=== PATIENT | male | born 1965 | race Caucasian/White ===

== ENCOUNTER 2017-08-08 07:41 | Emergency (ER) | payer BC ==
[2017-08-08] MEDS ORDERED: NA CHLORIDE 0.9% 1,000 ML ONE (08:00)
[2017-08-08 09:10] LABS: Absolute Monocytes 0.5 K/uL (0.1-1.3); Absolute Neutrophil 4.2 K/uL (1.8-8.0); Basophils % 0.9 % (0-1.3); Eosinophils % 0.8 % (0-4.4); Hematocrit 45.9 % (39.6-49.0); Lymphocytes % 16.5 % (15.3-44.8); MCH 25.6 pg (27.0-35.0); MCV 79.7 fL (80-100); MPV 8.5 fL (7.6-11.3); Monocytes % 9.1 % (3.3-12.3); RBC Red Blood Cell Count 5.76 M/uL (4.33-5.43)
[2017-08-08 09:11] LABS: Protime INR 0.97
[2017-08-08 09:22] LABS: Albumin 4.1 g/dL (3.2-5.5); Bilirubin Direct 0.1 mg/dL (0-0.2); Bilirubin Total 0.5 mg/dL (0.3-1.2); Magnesium 1.9 mg/dL (1.8-2.5); Protein, Total 7.3 g/dL (6.0-8.3)
--- NOTE | 2017-08-08 09:36 | RAD REPORT ---
EXAM DESCRIPTION: RAD - Chest Single View - 08/08/2017 8:35 am CLINICAL HISTORY: Chest pain, diabetes COMPARISON: None. FINDINGS: Portable technique limits examination quality. The lungs are grossly clear. The heart is normal in size. No displaced fractures. IMPRESSION: No acute intrathoracic process suspected.
--- NOTE | 2017-08-08 09:49 | EKG ---
Test Date: 2017-08-08 Test Time: 08:15:35 Health Records Technology Teacher: PRASHANT MEASUREMENT RESULTS: Intervals: Rate: 87 AR: 128 QRSD: 96 QT: 360 QTc: 433 Falls: P: 71 AR: 128 QRS: 66 T: 7 INTERPRETIVE STATEMENTS: Normal sinus rhythm T wave abnormality, consider inferior ischemia Abnormal ECG No previous ECG available for comparison Electronically Signed On 08-08-17 09:48:52 CDT by Arnulfo Terrazas
--- NOTE | 2017-08-08 09:50 | ER ---
Nurse's Notes [facility] Name: Caroline Pina Age: 52 yrs Sex: Male : 1965 Arrival Date: 08/08/2017 Time: 07:46 Bed 19 Private MD: Diagnosis: Palpitations;Weakness;Dehydration Presentation: 08/08 07:46 Presenting complaint: EMS states: called out for feeling "woozy and light headed" em reports nausea, denies vomiting, hx of diabetes, BGL on scene 134. EMS VS 165/80, 100HR, SPO2 100%, denies pain. Transition of care: patient was not received from another setting of care. Onset of symptoms was August 08, 2017. Initial Sepsis Screen: Does the patient meet any 2 criteria? No. Patient's initial sepsis screen is negative. Does the patient have a suspected source of infection? No. Patient's initial sepsis screen is negative. Care prior to arrival: Medication(s) given: Normal saline infusion, 200 mL. 07:46 Method Of Arrival: EMS: [facility] em 07:48 Acuity: ULCIO 3 iw Triage Assessment: 07:51 General: Appears in no apparent distress. comfortable, well groomed, Behavior is calm, em cooperative. Pain: Denies pain. Historical: - Allergies: 07:53 No Known Allergies; em - PMHx: 07:53 Irregular heart rate; High Cholesterol; em - PSHx: 07:53 vesectomy; em - Immunization history:: Adult Immunizations up to date. - Social history:: Smoking status: Patient/guardian denies using tobacco. Screenin:50 Abuse screen: Denies threats or abuse. Nutritional screening: No deficits noted. em Tuberculosis screening: No symptoms or risk factors identified. Fall Risk None identified. Assessment: 07:50 General: Appears in no apparent distress. comfortable, Behavior is calm, cooperative, em appropriate for age. Pain: Denies pain. Neuro: Level of Consciousness is awake, alert, obeys commands, Oriented to person, place, time, situation, Director Of [employer] are equal bilaterally Moves all extremities. Speech is normal, Facial symmetry appears normal, Intact Reports dizziness, light headed. Cardiovascular: Heart tones S1 S2 present Capillary refill < 3 seconds Patient's skin is warm and dry. Rhythm is sinus rhythm. Respiratory: Airway is patent Respiratory effort is even, unlabored, Respiratory pattern is regular, symmetrical. GI: Abdomen is flat. : No signs and/or symptoms were reported regarding the genitourinary system. EENT: No signs and/or symptoms were reported regarding the EENT system. Derm: Skin is intact, Skin is pink, warm \\T\\ dry. Musculoskeletal: Range of motion: intact in all extremities. 08:00 Reassessment: Patient appears in no apparent distress at this time. I agree with above iw assessment by Emmanuel Perales LVN. 08:48 Reassessment: Patient appears in no apparent distress at this time. Patient and/or em family updated on plan of care and expected duration. Pain level reassessed. Patient is alert, oriented x 3, equal unlabored respirations, skin warm/dry/pink. Patient states feeling better. Patient states symptoms have improved. 09:50 Reassessment: Patient appears in no apparent distress at this time. Patient and/or em family updated on plan of care and expected duration. Pain level reassessed. Patient is alert, oriented x 3, equal unlabored respirations, skin warm/dry/pink. Patient denies pain at this time. Patient states feeling better. Patient states symptoms have improved. Vital Signs: 07:51 BP 157 / 79; Pulse 101; Resp 18; Temp 97.8; Pulse Ox 100% on R/A; Weight 83.91 kg; em Height 5 ft. 10 in. (177.80 cm); Pain 0/10; 07:57 BP 135 / 78 Supine; Pulse 89; Resp 16; Pulse Ox 98% on R/A; mh5 07:59 BP 140 / 88 Sitting; Pulse 93; Resp 17; Pulse Ox 100% on R/A; mh5 08:00 BP 134 / 87 Standing; Pulse 94; Resp 16; Pulse Ox 99% on R/A; mh5 09:00 BP 127 / 81; Pulse 78; Resp 16; Pulse Ox 100% on R/A; Pain 0/10; em 10:03 BP 122 / 75; Pulse 81; Resp 18; Pulse Ox 99% on R/A; Pain 0/10; em 07:51 Body Mass Index 26.54 (83.91 kg, 177.80 cm) em ED Course: 07:46 Patient arrived in ED. em 07:47 Antwan Benjamin PA is PHCP. 8 07:47 Chetan Bowman MD is Attending Physician. jr8 07:48 Triage completed. iw 07:50 Patient has correct armband on for positive identification. Bed in low position. Call em light in reach. Side rails up X2. 07:50 No provider procedures requiring assistance completed. Maintain EMS IV. Dressing em intact. Good blood return noted. Site clean \\T\\ dry. Gauge \\T\\ site: 20 G RAC. 07:53 Arm band placed on. em 07:54 Emmanuel Perales LVN is Primary Nurse. em 08:22 EKG done, by commercial pest control technician. reviewed by Antwan MACK. tc 08:29 X-ray completed. Portable x-ray completed in exam room. Patient tolerated procedure ag1 well. 08:31 XRAY Chest (1 view) In Process Unspecified. EDMS 10:21 IV discontinued, intact, bleeding controlled, No redness/swelling at site. Pressure em dressing applied. Administered Medications: 08:30 Drug: NS 0.9% 1000 ml Route: IV; Rate: 1000 ml; Site: left antecubital; em 10:06 Follow up: IV Status: Completed infusion; IV Intake: 1000ml em Point of Care Testing: Blood Glucose: 08:06 Blood Glucose: 137 mg/dL; mh5 Ranges: Intake: 10:06 IV: 1000ml; Total: 1000ml. em Outcome: 09:49 Discharge ordered by . jr8 10:22 Discharged to home ambulatory, with family. em 10:22 Condition: good 10:22 Discharge instructions given to patient, family, Instructed on discharge instructions, follow up and referral plans. medication usage, Demonstrated understanding of instructions, follow-up care. 10:22 Patient left the ED. em Signatures: Dispatcher [employer] EDMS Emmanule Perales LVN LVN em Shu Beltran RN RN Antwan Lazo PA PA jr8 Alsysa Garcia, corporate real estate specialist EKG Ttc Jayshree Hart ag1 [place] 5 Corrections: (The following items were deleted from the chart) 10:20 07:51 BP 157 / 79; Pulse 101bpm; Resp 18bpm; Pulse Ox 100% RA; 83.91 kg; Height 5 ft. em 10 in.; BMI: 26.5; Pain 0/10; em
--- NOTE | 2017-08-08 09:50 | EDPHYS ---
Physician Documentation [facility] Name: Caroline Pina Age: 52 yrs Sex: Male : 1965 Arrival Date: 08/08/2017 Time: 07:46 Bed 19 Private MD: ED Physician Chetan Bowman HPI: 08/08 08:50 This 52 yrs old Male presents to ER via EMS with complaints of weakness. jr8 08:50 Patient stated that while at work felt weak and "not right". Stated that he feels jr8 drained. Noticed that he has palpations on/off. History of that and was been seen by cardiology and told that it is benign but noticed he is getting it more frequently. Had had increased shortness of breath with exertion today as well . Severity of symptoms: At their worst the symptoms were moderate in the emergency department the symptoms are unchanged. The patient has not experienced similar symptoms in the past. The patient has not recently seen a physician. Historical: - Allergies: 07:53 No Known Allergies; em - PMHx: 07:53 Irregular heart rate; High Cholesterol; em - PSHx: 07:53 vesectomy; em - Immunization history:: Adult Immunizations up to date. - Social history:: Smoking status: Patient/guardian denies using tobacco. ROS: 08:50 Eyes: Negative for injury, pain, redness, and discharge, ENT: Negative for injury, jr8 pain, and discharge, Neck: Negative for injury, pain, and swelling, Abdomen/GI: Negative for abdominal pain, nausea, vomiting, diarrhea, and constipation, Back: Negative for injury and pain, MS/Extremity: Negative for injury and deformity, Skin: Negative for injury, rash, and discoloration, Neuro: Negative for headache, weakness, numbness, tingling, and seizure. 08:50 Cardiovascular: Positive for palpitations, Negative for chest pain, edema, orthopnea, paroxysmal nocturnal dyspnea. 08:50 Respiratory: Positive for dyspnea on exertion, Negative for cough, hemoptysis, orthopnea, pleurisy, sputum production, wheezing. Exam: 08:50 Eyes: Pupils equal round and reactive to light, extra-ocular motions intact. Lids and jr8 lashes normal. Conjunctiva and sclera are non-icteric and not injected. Cornea within normal limits. Periorbital areas with no swelling, redness, or edema. ENT: Nares patent. No nasal discharge, no septal abnormalities noted. Tympanic membranes are normal and external auditory canals are clear. Oropharynx with no redness, swelling, or masses, exudates, or evidence of obstruction, uvula midline. Mucous membranes moist. Neck: Trachea midline, no thyromegaly or masses palpated, and no cervical lymphadenopathy. Supple, full range of motion without nuchal rigidity, or vertebral point tenderness. No Meningismus. Cardiovascular: Regular rate and rhythm with a normal S1 and S2. No gallops, murmurs, or rubs. Normal PMI, no JVD. No pulse deficits. Respiratory: Lungs have equal breath sounds bilaterally, clear to auscultation and percussion. No rales, rhonchi or wheezes noted. No increased work of breathing, no retractions or nasal flaring. Abdomen/GI: Soft, non-tender, with normal bowel sounds. No distension or tympany. No guarding or rebound. No evidence of tenderness throughout. Back: No spinal tenderness. No costovertebral tenderness. Full range of motion. Skin: Warm, dry with normal turgor. Normal color with no rashes, no lesions, and no evidence of cellulitis. MS/ Extremity: Pulses equal, no cyanosis. Neurovascular intact. Full, normal range of motion. Neuro: Awake and alert, GCS 15, oriented to person, place, time, and situation. Cranial nerves II-XII grossly intact. Motor strength 5/5 in all extremities. Sensory grossly intact. Cerebellar exam normal. Normal gait. Vital Signs: 07:51 BP 157 / 79; Pulse 101; Resp 18; Temp 97.8; Pulse Ox 100% on R/A; Weight 83.91 kg; em Height 5 ft. 10 in. (177.80 cm); Pain 0/10; 07:57 BP 135 / 78 Supine; Pulse 89; Resp 16; Pulse Ox 98% on R/A; mh5 07:59 BP 140 / 88 Sitting; Pulse 93; Resp 17; Pulse Ox 100% on R/A; mh5 08:00 BP 134 / 87 Standing; Pulse 94; Resp 16; Pulse Ox 99% on R/A; mh5 09:00 BP 127 / 81; Pulse 78; Resp 16; Pulse Ox 100% on R/A; Pain 0/10; em 10:03 BP 122 / 75; Pulse 81; Resp 18; Pulse Ox 99% on R/A; Pain 0/10; em 07:51 Body Mass Index 26.54 (83.91 kg, 177.80 cm) em MDM: 07:47 Patient medically screened. rust 09:48 Data reviewed: vital signs, nurses notes, lab test result(s), EKG, radiologic studies, jr8 plain films, and as a result, I will discharge patient. Data interpreted: Pulse oximetry: on room air is 99 %. Interpretation: normal. Counseling: I had a detailed discussion with the patient and/or guardian regarding: the historical points, exam findings, and any diagnostic results supporting the discharge/admit diagnosis, lab results, radiology results, the need for outpatient follow up, a wan support specialist, a family practitioner, to return to the emergency department if symptoms worsen or persist or if there are any questions or concerns that arise at home. Response to treatment: the patient's symptoms have markedly improved after treatment, patient is well hydrated. 08/08 07:54 Order name: Basic Metabolic Panel; Complete Time: 09:23 08/08 07:54 Order name: BNP; Complete Time: 09:27 08/08 07:54 Order name: CBC with Diff; Complete Time: 09:14 08/08 07:54 Order name: CPK; Complete Time: 09:23 08/08 07:54 Order name: LFT's; Complete Time: 09:23 08/08 07:54 Order name: Magnesium; Complete Time: 09:23 08/08 07:54 Order name: PT-INR; Complete Time: 09:14 08/08 07:54 Order name: Troponin (emerg Dept Use Only); Complete Time: 09:23 08/08 07:54 Order name: XRAY Chest (1 view); Complete Time: 09:37 08/08 07:54 Order name: EKG; Complete Time: 07:55 08/08 07:54 Order name: Cardiac monitoring; Complete Time: 08:39 08/08 07:54 Order name: EKG - Nurse/Tech; Complete Time: 08:39 08/08 08:23 Order name: Urine Dipstick--Ancillary (enter results); Complete Time: 10:04 2 08/08 07:54 Order name: IV Saline Lock; Complete Time: 08:39 08/08 07:54 Order name: Labs collected and sent; Complete Time: 08:39 08/08 07:54 Order name: O2 Per Protocol; Complete Time: 08:39 08/08 07:54 Order name: O2 Sat Monitoring; Complete Time: 08:39 08/08 07:54 Order name: Urine Dipstick-Ancillary (obtain specimen); Complete Time: 08:40 08/08 07:54 Order name: Orthostatics; Complete Time: 08:39 Administered Medications: 08:30 Drug: NS 0.9% 1000 ml Route: IV; Rate: 1000 ml; Site: left antecubital; em 10:06 Follow up: IV Status: Completed infusion; IV Intake: 1000ml em Point of Care Testing: Blood Glucose: 08:06 Blood Glucose: 137 mg/dL; mh5 Ranges: Critical Glucose Levels:Adult <50 mg/dl or >400 mg/dl <40 mg/dl or >180 mg/dl Disposition: 08/08/17 09:49 Discharged to Home. Impression: Palpitations, Weakness, Dehydration. - Condition is Stable. - Discharge Instructions: Dehydration, Adult, Palpitations, Weakness, Fatigue. - Medication Reconciliation Form, Thank You Letter, Antibiotic Education, Prescription Opioid Use form. - Follow up: Private Physician; When: 2 - 3 days; Reason: Recheck today's complaints, Continuance of care, Re-evaluation by your physician. - Problem is new. - Symptoms have improved. Addendum: 08/11/2017 06:09 Co-signature as Attending Physician, Chetan Bowman MD Available for consultation at p s1 all times. . Signatures: Dispatcher [employer] EDEmmanuel Vega, MILK AND CREAM GRADER MILK AND CREAM GRADER em Antwan Benjamin PA PA jr8 Chetan Bowman MD MD ps1
[2017-08-08 10:03] LABS: Urine Blood NEGATIVE (NEG); Urine Glucose NEGATIVE (NEG); Urine Protein NEGATIVE (NEG); Urine Specific Gravity <1.005 (1.005-1.030); Urine pH 5.5 (5.0-7.0)
== END 2017-08-08 10:22 | disposition home or self-care (01) ==
LOC: ER 07:41
DX: E86.0 Dehydration (principal); R53.1 Weakness; E78.00 Pure hypercholesterolemia, unspecified
CPT/HCPCS: 36415; 71045; 80048; 80076; 81003; 82550; 82962; 83735; 83880; 84484; 85025; 85610; 93005; 96360; 96361; 99284; J7030